=== PATIENT | male | born 1960 | race Caucasian/White ===

== ENCOUNTER 2017-05-04 17:42 | Observation (INO) | payer MEDICARE, OTHER ==
[2017-05-04] VITALS (8 sets, daily range): BP systolic 102–145; BP diastolic 59–78; PULSE 84–95; RESP 17–18; TEMP 98.2–98.8; O2SAT 97–100
[~2017-05-04] VITALS: Ht 170.2 cm; Wt 75.0 kg
[~2017-05-04 17:42] MED LIST: HYDR-3533 PO; PERC10TA27 PO
[2017-05-04] MEDS ORDERED: HYDR-3535 PO (18:03)
[2017-05-04] MEDS ORDERED: LISI40TA PO (18:04)
--- NOTE | 2017-05-04 18:12 | PD ---
HPI Chief Complaint: Syncope/Near-Syncope Time Seen by Provider: 17:52 Travel History International Travel<30 days: No Contact w/Intl Traveler<30days: No Traveled to known affect area: No History of Present Illness HPI Patient is a 57-year-old male who comes in after multiple syncopal episodes. Per his friend, he woke up from sleep and then just passed out and fell backwards. She says she witnessed this happened 4 times. He says this has never happened before. He complains of some left sided chest pain that started after the event. His friend says he has been drinking. He says he was feeling well prior to the event, however he was having leg pain, which is chronic for him. He denies any nausea or vomiting. He does complain of a headache. He denies any dizziness. He says he has not eaten much today. PFSH Past Medical History Diminished Hearing: No Past Surgical History Appendectomy: Yes Other Surgery: Yes (knee surgery) Social History Alcohol Use: Yes (3 beers weekly) Tobacco Use: No Substance Use: No Allergies-Medications (Allergen,Severity, Reaction): Coded Allergies: Penicillin (Verified Allergy, Unknown, 06/19/16) Reported Meds & Prescriptions Reported Meds & Active Scripts Active Reported Lisinopril 40 Mg Tab 80 Mg PO DAILY Lortab (Hydrocodone-Acetaminophen) 10-325 Mg Tab 1 Tab PO Q4H PRN Review of Systems Except as stated in HPI: all other systems reviewed are Neg General / Constitutional: No: Fever, Chills Eyes: No: Blurred Vision HENT: Positive: Headaches Cardiovascular: Positive: Chest Pain or Discomfort Respiratory: No: Shortness of Breath Gastrointestinal: No: Nausea, Vomiting, Abdominal Pain Musculoskeletal: Positive: Pain Skin: No Rash, No Change in Pigmentation Neurologic: Positive: Syncope Physical Exam Narrative GENERAL: Awake and alert, in no acute distress. Alcohol on breath. SKIN: Focused skin assessment warm/dry. HEAD: Atraumatic. Normocephalic. EYES: Pupils equal and round. No scleral icterus. ENT: No nasal bleeding or discharge. Mucous membranes pink and moist. NECK: Trachea midline. No JVD. No cervical spine tenderness. CARDIOVASCULAR: Regular rate and rhythm. No murmur appreciated. RESPIRATORY: No accessory muscle use. Clear to auscultation. Breath sounds equal bilaterally. GASTROINTESTINAL: Abdomen soft, non-tender, nondistended. MUSCULOSKELETAL: No obvious deformities. No clubbing. No cyanosis. No edema. No tenderness to the thoracic or lumbar spine. NEUROLOGICAL: Awake and alert. No obvious cranial nerve deficits. Motor grossly within normal limits. Normal speech. PSYCHIATRIC: Appropriate mood and affect; insight and judgment normal. Data Data Last Documented VS Vital Signs Date Time Temp Pulse Resp B/P Pulse Ox O2 Delivery O2 Flow Rate FiO2 05/04/17 20:04 88 18 139/78 100 Room Air 05/04/17 18:28 2 05/04/17 17:47 98.2 Orders Electrocardiogram (05/04/17 ) Complete Blood Count With Diff (05/04/17 18:) Comprehensive Metabolic Panel (05/04/17 18:) Ckmb (Isoenzyme) Profile (05/04/17 18:01) Troponin I (05/04/17 18:01) Act Partial Throm Time (Ptt) (05/04/17 18:) Prothrombin Time / Inr (Pt) (05/04/17 18:01) Chest, Single Ap (05/04/17 18:01) Ct Brain W/O Iv Contrast(Rout) (05/04/17 18:01) Ct Cerv Spine W/O Contrast (05/04/17 18:01) Ecg Monitoring (05/04/17 18:01) Iv Access Insert/Monitor (05/04/17 18:01) Oximetry (05/04/17 18:01) Sodium Chloride 0.9% Flush (Ns Flush) (05/04/17 18:15) Alcohol (Ethanol) (05/04/17 18:01) Sodium Chlor 0.9% 1000 Ml Inj (Ns 1000 M (05/04/17 18:15) Aspirin Chew (Aspirin Chew) (05/04/17 20:30) Admit Order (Ed Use Only) (05/04/17 20:26) Labs Laboratory Tests Test 05/04/17 18:17 White Blood Count 4.8 TH/MM3 Red Blood Count 3.28 MIL/MM3 Hemoglobin 12.1 GM/DL Hematocrit 34.2 % Mean Corpuscular Volume 104.4 FL Mean Corpuscular Hemoglobin 36.9 PG Mean Corpuscular Hemoglobin 35.4 % Concent Red Cell Distribution Width 12.8 % Platelet Count 212 TH/MM3 Mean Platelet Volume 7.4 FL Neutrophils (%) (Auto) 53.4 % Lymphocytes (%) (Auto) 32.3 % Monocytes (%) (Auto) 13.0 % Eosinophils (%) (Auto) 0.5 % Basophils (%) (Auto) 0.8 % Neutrophils # (Auto) 2.6 TH/MM3 Lymphocytes # (Auto) 1.5 TH/MM3 Monocytes # (Auto) 0.6 TH/MM3 Eosinophils # (Auto) 0.0 TH/MM3 Basophils # (Auto) 0.0 TH/MM3 CBC Comment DIFF FINAL Differential Comment Prothrombin Time 10.0 SEC Prothromb Time International 0.9 RATIO Ratio Activated Partial 23.3 SEC Thromboplast Time Sodium Level 128 MEQ/L Potassium Level 3.6 MEQ/L Chloride Level 94 MEQ/L Carbon Dioxide Level 22.5 MEQ/L Anion Gap 12 MEQ/L Blood Urea Nitrogen 6 MG/DL Creatinine 0.72 MG/DL Estimat Glomerular Filtration 113 ML/MIN Rate Random Glucose 108 MG/DL Calcium Level 8.6 MG/DL Total Bilirubin 0.7 MG/DL Aspartate Amino Transf 47 U/L (AST/SGOT) Alanine Aminotransferase 42 U/L (ALT/SGPT) Alkaline Phosphatase 33 U/L Total Creatine Kinase 66 U/L Troponin I LESS THAN 0.02 NG/ML Total Protein 7.1 GM/DL Albumin 4.0 GM/DL Ethyl Alcohol Level 204 MG/DL [facility] Medical Decision Making Medical Screen Exam Complete: Yes Emergency Medical Condition: Yes Medical Record Reviewed: Yes Interpretation(s) ECG shows normal sinus rhythm at 93, no ST elevation or depression, normal intervals. Differential Diagnosis Dehydration versus intoxication versus cardiac syncope versus neurogenic syncope Narrative Course Patient is a 57-year-old male who comes in after multiple syncopal episodes. Exam shows no neurologic abnormalities. IV established, labs sent. Patient connected to the monitoring manager. Given IV fluids. Patient signed out to Dr. Castillo to follow up testing and disposition the patient. Diagnosis Primary Impression: Syncope Qualified Code: R55 - Syncope, unspecified syncope type Condition: Emelia Luu MD May 04, 2017 18:12
[2017-05-04] MEDS ORDERED: SODIUM CHLOR 0.9% 1000 ML INJ 1,000 ML IV ONE (18:15)
[2017-05-04] MEDS ORDERED: SODIUM CHLORIDE 0.9% FLUSH 10 ML FLUSH IVF PRN (18:15)
--- NOTE | 2017-05-04 18:36 | RADRPT ---
EXAM DATE/TIME: 05/04/2017 18:17 [facility] COMPARISON: No previous studies available for comparison. INDICATIONS : Chest pain. MEDICAL HISTORY : None. SURGICAL HISTORY : None. ENCOUNTER: Initial ACUITY: 1 day PAIN SCORE: 0/10 LOCATION: Bilateral chest FINDINGS: A single view of the chest demonstrates the lungs to be symmetrically aerated without evidence of mas s, infiltrate or effusion. The cardiomediastinal contours are unremarkable. Osseous structures are intact. Old fracture right clavicle. CONCLUSION: No acute disease. Jairo Barker MD on May 04, 2017 at 18:34 Board Certified Radiologist. This report was verified electronically.
[2017-05-04 18:39] LABS: AUTOMATED NEUTROPHIL # 2.6 TH/MM3 (1.8-7.7); BASOPHIL % 0.8 % (0.0-2.0); EOSINOPHIL % 0.5 % (0.0-4.0); HEMATOCRIT 34.2 % (39.0-51.0); HEMO FLAGS DIFF FINAL; LYMPH % 32.3 % (9.0-44.0); LYMPHOCYTE # 1.5 TH/MM3 (1.0-4.8); MEAN CELL VOLUME 104.4 FL (80.0-100.0); MEAN CORPUSCULAR HEMOGLOBIN 36.9 PG (27.0-34.0); MEAN CORPUSCULAR HGB CONC 35.4 % (32.0-36.0); NEUT % 53.4 % (16.0-70.0); PLATELET COUNT 212 TH/MM3 (150-450); RED BLOOD COUNT 3.28 MIL/MM3 (4.50-5.90); RED CELL DISTRIBUTION WIDTH 12.8 % (11.6-17.2); WHITE BLOOD COUNT 4.8 TH/MM3 (4.0-11.0)
--- NOTE | 2017-05-04 18:46 | RADRPT ---
EXAM DATE/TIME: 05/04/2017 18:32 [facility] COMPARISON: No previous studies available for comparison. INDICATIONS : Trauma; fall. Patient complains of dizziness and multiple falls. RADIATION DOSE: 56.35 CTDIvol (mGy) MEDICAL HISTORY : None SURGICAL HISTORY : Appendectomy. Right knee surgery ENCOUNTER: Initial ACUITY: 1 day PAIN SCALE: 5/10 LOCATION: cranial TECHNIQUE: Multiple contiguous axial images were obtained of the head. Using automated exposure control and adj ustment of the mA and/or kV according to patient size, radiation dose was kept as low as reasonably a chievable to obtain optimal diagnostic quality images. DICOM format image data is available electro nically for review and comparison. FINDINGS: CEREBRUM: The ventricles are normal for age. No evidence of midline shift, mass lesion, hemorrhage or acute in farction. No extra-axial fluid collections are seen. POSTERIOR FOSSA: The cerebellum and brainstem are intact. The 4th ventricle is midline. The cerebellopontine angle i s unremarkable. EXTRACRANIAL: The visualized portion of the orbits is intact. SKULL: The calvaria is intact. No evidence of skull fracture. CONCLUSION: No acute intracranial disease. Jairo Barker MD on May 04, 2017 at 18:44 Board Certified Radiologist. This report was verified electronically.
[2017-05-04 18:49] LABS: APTT (PATIENT) 23.3 SEC (24.3-30.1); INTERNATIONAL NORMALIZED RATIO 0.9 RATIO
[2017-05-04 19:01] LABS: ANION GAP 12 MEQ/L (5-15); AST (GOT) 47 U/L (15-37); BICARBONATE 22.5 MEQ/L (21.0-32.0); BLOOD UREA NITROGEN 6 MG/DL (7-18); CHLORIDE 94 MEQ/L (98-107); GLOMERULAR FILTRATION RATE 113 ML/MIN (>89); POTASSIUM 3.6 MEQ/L (3.5-5.1); SODIUM (NA) 128 MEQ/L (136-145)
--- NOTE | 2017-05-04 19:01 | RADRPT ---
EXAM DATE/TIME: 05/04/2017 18:35 [facility] COMPARISON: No previous studies available for comparison. INDICATIONS : Trauma; fall. RADIATION DOSE: 39.42 CTDIvol (mGy) MEDICAL HISTORY : None SURGICAL HISTORY : Appendectomy. Right knee surgery ENCOUNTER: Initial ACUITY: 1 day PAIN SCALE: 5/10 LOCATION: neck TECHNIQUE: Volumetric scanning of the cervical spine was performed. Multiplanar reconstructions in the sagittal, coronal and oblique axial planes were performed. Using automated exposure control and adjustment o f the mA and/or kV according to patient size, radiation dose was kept as low as reasonably achievable to obtain optimal diagnostic quality images. DICOM format image data is available electronically f or review and comparison. FINDINGS: VERTEBRAE: Normal vertebral body height. ALIGNMENT: No evidence of subluxation. C2-C3: The bony spinal canal is normal in size. No evidence of disc bulge or herniation. The neural forami na are bilaterally patent. C3-C4: Small protrusion without canal stenosis. The neural foramina are bilaterally patent. C4-C5: Small protrusion without canal stenosis. The neural foramina are bilaterally patent. C5-C6: Small protrusion without canal stenosis. The neural foramina are bilaterally patent. C6-C7: Small protrusion without canal stenosis. . The neural foramina are bilaterally patent. C7-T1: The bony spinal canal is normal in size. No evidence of disc bulge or herniation. The neural forami na are bilaterally patent. CONCLUSION: 1. No fracture or subluxation. 2. Multilevel protrusions without canal stenosis. Jairo Barker MD on May 04, 2017 at 18:58 Board Certified Radiologist. This report was verified electronically.
[2017-05-04 19:08] LABS: ALKALINE PHOSPHATASE 33 U/L (45-117); ALT (GPT) 42 U/L (12-78); TOTAL BILIRUBIN ADULT 0.7 MG/DL (0.2-1.0)
[2017-05-04 19:10] LABS: CREATINE KINASE 66 U/L (39-308)
--- NOTE | 2017-05-04 19:11 | PD ---
Data Data Last Documented VS Vital Signs Date Time Temp Pulse Resp B/P Pulse Ox O2 Delivery O2 Flow Rate FiO2 05/04/17 20:04 88 18 139/78 100 Room Air 05/04/17 18:28 2 05/04/17 17:47 98.2 Orders Electrocardiogram (05/04/17 ) Complete Blood Count With Diff (05/04/17 18:01) Comprehensive Metabolic Panel (05/04/17 18:01) Ckmb (Isoenzyme) Profile (05/04/17 18:01) Troponin I (05/04/17 18:01) Act Partial Throm Time (Ptt) (05/04/17 18:01) Prothrombin Time / Inr (Pt) (05/04/17 18:01) Chest, Single Ap (05/04/17 18:01) Ct Brain W/O Iv Contrast(Rout) (05/04/17 18:01) Ct Cerv Spine W/O Contrast (05/04/17 18:01) Ecg Monitoring (05/04/17 18:01) Iv Access Insert/Monitor (05/04/17 18:01) Oximetry (05/04/17 18:01) Sodium Chloride 0.9% Flush (Ns Flush) (05/04/17 18:15) Alcohol (Ethanol) (05/04/17 18:01) Sodium Chlor 0.9% 1000 Ml Inj (Ns 1000 M (05/04/17 18:15) Aspirin Chew (Aspirin Chew) (05/04/17 20:30) Admit Order (Ed Use Only) (05/04/17 20:26) Labs Laboratory Tests Test 05/04/17 18:17 White Blood Count 4.8 TH/MM3 Red Blood Count 3.28 MIL/MM3 Hemoglobin 12.1 GM/DL Hematocrit 34.2 % Mean Corpuscular Volume 104.4 FL Mean Corpuscular Hemoglobin 36.9 PG Mean Corpuscular Hemoglobin 35.4 % Concent Red Cell Distribution Width 12.8 % Platelet Count 212 TH/MM3 Mean Platelet Volume 7.4 FL Neutrophils (%) (Auto) 53.4 % Lymphocytes (%) (Auto) 32.3 % Monocytes (%) (Auto) 13.0 % Eosinophils (%) (Auto) 0.5 % Basophils (%) (Auto) 0.8 % Neutrophils # (Auto) 2.6 TH/MM3 Lymphocytes # (Auto) 1.5 TH/MM3 Monocytes # (Auto) 0.6 TH/MM3 Eosinophils # (Auto) 0.0 TH/MM3 Basophils # (Auto) 0.0 TH/MM3 CBC Comment DIFF FINAL Differential Comment Prothrombin Time 10.0 SEC Prothromb Time International 0.9 RATIO Ratio Activated Partial 23.3 SEC Thromboplast Time Sodium Level 128 MEQ/L Potassium Level 3.6 MEQ/L Chloride Level 94 MEQ/L Carbon Dioxide Level 22.5 MEQ/L Anion Gap 12 MEQ/L Blood Urea Nitrogen 6 MG/DL Creatinine 0.72 MG/DL Estimat Glomerular Filtration 113 ML/MIN Rate Random Glucose 108 MG/DL Calcium Level 8.6 MG/DL Total Bilirubin 0.7 MG/DL Aspartate Amino Transf 47 U/L (AST/SGOT) Alanine Aminotransferase 42 U/L (ALT/SGPT) Alkaline Phosphatase 33 U/L Total Creatine Kinase 66 U/L Troponin I LESS THAN 0.02 NG/ML Total Protein 7.1 GM/DL Albumin 4.0 GM/DL Ethyl Alcohol Level 204 MG/DL [facility] Medical Record Reviewed: Yes Supervised Visit with CARL: No Interpretation(s) Last Impressions Head CT 05/04/171800 Signed Impressions: Service Date/Time: Thursday, May 04, 2017 18:32 - CONCLUSION: No acute intracranial disease. Jairo Barker MD Chest X-Ray 05/04/171800 Signed Impressions: Service Date/Time: Thursday, May 04, 2017 18:17 - CONCLUSION: No acute disease. Jairo Barker MD Cervical Spine CT 05/04/171800 Signed Impressions: Service Date/Time: Thursday, May 04, 2017 18:35 - CONCLUSION: 1. No fracture or subluxation. 2. Multilevel protrusions without canal stenosis. Jairo Barker MD Narrative Course During the course of the patients emergency department visit, the patients history, examination, and differential diagnosis were reviewed with the patient. The patient had IV access obtained and blood work sent for analysis. The patient was placed on a radiation monitor with oximetry and blood pressure monitoring. The patient was initially evaluated by Dr. Jackson. Please see her complete history and physical. The patient's case was checked out to me at the conclusion of her shift. The patient was initially provided normal saline a 1 L IV fluid bolus. The patients laboratory studies were reviewed and remarkable for a white count of 4.8, hemoglobin 12.1, platelets 212 with 13 monocytes, CMP is remarkable for sodium of 128, chloride 94, BUNs 6, glucose 108, AST 47, alkaline phosphatase 33 , CPK 66, troponin I less than 0.02, PT 10, PTT 23.3, alcohol 204. Radiology studies were reviewed and remarkable for a chest x-ray that shows no acute abnormality. CT scan of the brain shows no acute intracranial disease. CT scan of the C-spine shows no fracture or subluxation, multilevel protrusions without canal stenosis. Given his multiple syncopal events prior to arrival and chest pain after one of the syncopal event, the patient will be admitted to the hospital for continued further evaluation and treatment. The patients results were discussed with the patient, including the plan of care. I explained that further testing and/ or monitoring is indicated based on the patients history, examination, and/ or laboratory findings. Therefore, I recommended admission for additional evaluation. The patient expressed understanding and was agreeable with this plan. The patient was admitted to the hospital in stable condition and sent to a bed under the care of the [facility] hospitalist group. Physician Communication Physician Communication The patient's case is discussed with Tim Sibley. He did agree to admit the patient for further evaluation and treatment to the [facility] hospitalist group. Diagnosis Primary Impression: Syncope Qualified Code: R55 - Syncope, unspecified syncope type Additional Impression: Chest pain, rule out acute myocardial infarction Admitting Information Admitting Physician Requests: Bren Traore MD May 04, 2017 19:11
[2017-05-04] MEDS ORDERED: SODIUM CHLORIDE 0.9% FLUSH 10 ML FLUSH IV FLUSH PRN (20:30)
[2017-05-04] MEDS ORDERED: NALOXONE HCL 0.4 MG/ML AMP IV PRN (20:30)
[2017-05-04] MEDS ORDERED: cloNIDine HCL 0.1 MG TAB PO PRN (20:30)
[2017-05-04] MEDS ORDERED: ONDANSETRON HCL 4 MG/2 ML VIAL IVP PRN (20:30)
[2017-05-04] MEDS ORDERED: SENNOSIDES 8.6 MG TAB PO PRN (20:30)
[2017-05-04] MEDS ORDERED: ASPIRIN 81 MG CHEW TAB CHEW ONE (20:30)
[2017-05-04] MEDS ORDERED: LORazepam 1 MG TAB PO PRN (20:30)
[2017-05-04] MEDS ORDERED: LORazepam 2 MG/ML VIAL IV PUSH PRN ×2 (20:30)
[2017-05-04] MEDS ORDERED: ACETAMINOPHEN 325 MG TAB PO PRN (20:30)
[2017-05-04] MEDS ORDERED: LORazepam 2 MG TAB PO PRN (20:30)
[2017-05-04] MEDS: SODIUM CHLOR 0.9% 1000 ML INJ 1,000 ML IV SCH (20:53)
[2017-05-04] MEDS: SODIUM CHLORIDE 0.9% FLUSH 10 ML FLUSH IV FLUSH SCH (21:08)
[2017-05-04] MEDS: FAMOTIDINE 20 MG TAB PO SCH (21:13)
[2017-05-04 22:54] LABS: AMPHETAMINE, URINE NEG (NEG); BARBITURATES, URINE NEG (NEG); COCAINE, URINE NEG (NEG)
[2017-05-04] MEDS ORDERED: POTASSIUM CHLORIDE 25 MEQ EFFERVESCENT TAB PO ONE (23:00)
[2017-05-04] MEDS: ACETAMINOPHEN/HYDROcodone 325 MG/7.5 MG TAB PO PRN (23:49)
[2017-05-05] VITALS (8 sets, daily range): BP systolic 130–164; BP diastolic 68–84; PULSE 74–96; RESP 14–20; TEMP 97.8–98.7; O2SAT 97–100
[2017-05-05] MEDS: ENOXAPARIN SODIUM 40 MG/0.4 ML SYRINGE SQ SCH ×2 (00:14→21:54)
--- NOTE | 2017-05-05 05:26 | MH ---
cc: ESTEFANIA LOPZE D.O., AMMA DATE OF ADMISSION: 05/04/2017 TIME OF VISIT 22:00 CHIEF COMPLAINT Syncope, chest pain. HISTORY OF PRESENT ILLNESS This is a 57-year-old male who was drinking with a friend of his. He had more beers than he was used to. He admits to five beers. States he does not drink on a daily basis. Denies any drug use or tobacco use. The patient apparently had several episodes of syncope; he does not remember this. The next thing, he woke up and the ambulances were there. According to the ER notes, he syncopized four times. He apparently complained of some chest pain after the episode; however, at this point he does not remember having any chest pain. Denied any shortness of breath, nausea or vomiting, fever or chills. He does have a headache. He feels that he hit the back of his head. He admits to one episode of syncope about a month ago. There was no witnessed seizure activity, no loss of bowel or bladder control. He has had no recent exertional chest pain. MEDICATIONS ON ADMISSION Lisinopril. Lortab. ALLERGIES PENCIL LOUIE. PAST MEDICAL HISTORY 1. Hypertension. 2. Episode of syncope one month ago. 3. 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 PAST SURGICAL HISTORY 1. Right knee ACL. 2. Appendectomy. 3. Right foot surgery 4. Lumbar spinal surgery. SOCIAL HISTORY Not . Denies alcohol or drug use. Occasional alcohol. Disabled. He used to be a substation technician. FAMILY HISTORY Father at 40, was shot. Mother is alive and well. Sister is alive and well. REVIEW OF SYSTEMS The patient states he had blood work several months ago with Dr. Lopez and everything was normal. He has never had a colonoscopy but did have the DNA stool test which was reported to be normal. His appetite has been poor. He has lost about 35 pounds over the past several years. He states this is because of his chronic pain. A 12-point review of systems without other pertinent findings. PHYSICAL EXAMINATION VITAL SIGNS: He is afebrile. Heart rate sinus, 18, blood pressure is 145/75, O2 sat is 100%. GENERAL: This is a 57-year-old male sitting in bed. He is in no distress. HEENT: Mucous membranes are moist. No jaundice. NECK: Supple. CARDIOVASCULAR SYSTEM: Regular rate and rhythm. RESPIRATORY SYSTEM: Lungs are clear. GASTROINTESTINAL SYSTEM: Bowel sounds are present. There is no point tenderness, guarding, rebound or distention. SYSTEM: No suprapubic tenderness. No CVA tenderness. MUSCULOSKELETAL SYSTEM: No edema. Doris's negative. Distal pulses are palpable. NEUROLOGICAL EXAMINATION: Awake, alert, oriented x 4. Speech is clear and fluent. Moving all extremities freely. INVESTIGATIONS White count is 4.8, hemoglobin is 12.1, platelets are 212. INR is 0.9. Sodium 128, potassium 3.6, BUN 6, creatinine 0.72. AST 47, ALT of 42. Troponin I 0.2. Urine drug screen is pending. Blood alcohol level is 204. CT of the cervical spine - no fracture. Chest x-ray - No acute disease. CT f the brain - No acute abnormality. IMPRESSION 1. Multiple syncopal episodes. 2. Alcohol intoxication. 3. Atypical chest pain. 4. Hypertension. 5. Chronic pain. 6. Hyponatremia. 7. Mild anemia. DISCUSSION The patient is placed on observation status to Dr. Montes's service. The plan is to rule him out for acute cardiac event with serial troponins, repeat EKG in the morning. He has received aspirin. He currently has no chest discomfort. DVT prophylaxis will be provided. GI prophylaxis with an H2 sweta will be given. The patient will be placed on a CIWA-Ar scale, p.r.n. Ativan. He has received IV fluids. We will give him a dose of potassium. We will recheck electrolytes in the morning, also check stool for blood, check iron stores and make further recommendations as his case progresses. Anticipated length of stay less than 48 hours. Anticipated discharge home. Dictated by: Marc Sibley PA-C MD ANNA [place]/DOMINIQUE /10:59 PM /5:07 AM
[2017-05-05] MEDS: ACETAMINOPHEN/HYDROcodone 325 MG/7.5 MG TAB PO PRN ×3 (06:39→21:51)
[2017-05-05] MEDS: SODIUM CHLOR 0.9% 1000 ML INJ 1,000 ML IV SCH ×2 (06:40→07:54)
[2017-05-05 07:14] LABS: AUTOMATED NEUTROPHIL # 3.2 TH/MM3 (1.8-7.7); BASOPHIL % 0.3 % (0.0-2.0); EOSINOPHIL % 0.1 % (0.0-4.0); HEMATOCRIT 33.2 % (39.0-51.0); HEMO FLAGS DIFF FINAL; LYMPH % 17.4 % (9.0-44.0); LYMPHOCYTE # 0.8 TH/MM3 (1.0-4.8); MEAN CELL VOLUME 106.6 FL (80.0-100.0); MEAN CORPUSCULAR HEMOGLOBIN 36.1 PG (27.0-34.0); MEAN CORPUSCULAR HGB CONC 33.9 % (32.0-36.0); NEUT % 73.2 % (16.0-70.0); PLATELET COUNT 194 TH/MM3 (150-450); RED BLOOD COUNT 3.12 MIL/MM3 (4.50-5.90); RED CELL DISTRIBUTION WIDTH 12.9 % (11.6-17.2); WHITE BLOOD COUNT 4.4 TH/MM3 (4.0-11.0)
[2017-05-05] MEDS: FOLIC ACID 1 MG TAB PO SCH (07:55)
[2017-05-05] MEDS: SODIUM CHLORIDE 0.9% FLUSH 10 ML FLUSH IV FLUSH SCH ×2 (07:55→21:52)
[2017-05-05] MEDS: MULTIVITAMINS/MINERALS THERAPEUTIC TAB PO SCH (07:55)
[2017-05-05] MEDS: THIAMINE HCL 100 MG TAB PO SCH (07:56)
[2017-05-05] MEDS: ASPIRIN EC 81 MG TABEC PO SCH (07:56)
[2017-05-05] MEDS: FAMOTIDINE 20 MG TAB PO SCH ×2 (07:56→21:52)
[2017-05-05 07:58] LABS: ALKALINE PHOSPHATASE 29 U/L (45-117); ALT (GPT) 44 U/L (12-78); ANION GAP 9 MEQ/L (5-15); AST (GOT) 52 U/L (15-37); BICARBONATE 24.2 MEQ/L (21.0-32.0); BLOOD UREA NITROGEN 6 MG/DL (7-18); CHLORIDE 103 MEQ/L (98-107); GLOMERULAR FILTRATION RATE 143 ML/MIN (>89); POTASSIUM 4.3 MEQ/L (3.5-5.1); SODIUM (NA) 136 MEQ/L (136-145); TOTAL BILIRUBIN ADULT 1.3 MG/DL (0.2-1.0)
--- NOTE | 2017-05-05 08:40 | EKG ---
Date Performed: 05/05/2017 Time Performed: 04:12:49 PTAGE: 57 years EKG: Sinus rhythm NORMAL ECG PREVIOUS TRACING : 05/04/2017 18.00 No significant change from previous tracing noted. DOCTOR: Hoang Hernandez Interpretating Date/Time 05/05/2017 08:39:33
[2017-05-05] MEDS ORDERED: LISINOPRIL 80 MG PO SCH (09:00)
--- NOTE | 2017-05-05 09:16 | RADRPT ---
EXAM DATE/TIME: 05/05/2017 08:22 [facility] COMPARISON: No previous studies available for comparison. INDICATIONS : Syncope. MEDICAL HISTORY : Syncope. ETOH use. SURGICAL HISTORY : Appendectomy. Bilateral knee surgery. ENCOUNTER: Initial ACUITY: 1 day PAIN SCORE: 10 LOCATION: Bilateral neck PEAK SYSTOLIC VELOCITIES (cm/sec): ICA/CCA RATIO: Right: 1.1 Left: 0.9 ICA: Right: 100 Left: 102 CCA: Right: 89 Left: 111 ECA: Right: 120 Left: 91 VERTEBRAL: Right: 60 antegrade Left: 70 antegrade Elevated flow velocities and ICA/CCA ratios have been found to correlate with increased degrees of vessel stenosis, calculated as percentage of diameter relative to a normal segment of distal ICA/CCA FINDINGS: RIGHT CAROTID: There is no evidence for a hemodynamically significant carotid stenosis. Minimal int imal hyperplasia is present with scattered calcific plaque. LEFT CAROTID: There is no evidence for a hemodynamically significant carotid stenosis. Minimal inti mal hyperplasia is present with scattered calcific plaque. VERTEBRAL ARTERIES: Flow is antegrade in both vertebral arteries. MISCELLANEOUS: There are no ancillary masses or adenopathy. CONCLUSION: Negative examination for a hemodynamically significant carotid stenosis. Dick Nova MD FACR Board Certified Radiologist. This report was verified electronically.
[2017-05-05] MEDS: LISINOPRIL 20 MG TAB PO SCH (10:43)
--- NOTE | 2017-05-05 11:43 | HHI.PR ---
Objective Objective Results - Vital Signs Date Time Temp Pulse Resp B/P Pulse Ox O2 Delivery O2 Flow Rate FiO2 05/05/17 11:23 98.0 14 130/70 97 133/73 141/68 05/05/17 08:00 98 21 05/05/17 08:00 82 05/05/17 07:22 97.9 85 15 139/75 98 05/05/17 04:09 89 05/05/17 04:06 98.7 96 20 133/84 99 05/05/17 00:50 14 05/05/17 00:20 82 05/04/17 22:14 98.8 84 18 144/72 98 05/04/17 22:06 84 05/04/17 21:20 90 18 145/75 100 Room Air 05/04/17 21:00 100 Nasal Cannula 2.00 05/04/17 20:04 88 18 139/78 100 Room Air 05/04/17 18:28 82 18 97 Nasal Cannula 2 05/04/17 18:19 95 18 107/64 100 Nasal Cannula 2 05/04/17 18:11 97 Nasal Cannula 2 05/04/17 17:47 98.2 92 17 102/59 99 I/O 05/04/17 05/04/17 05/04/17 05/05/17 05/05/17 05/05/17 06:59 14:59 22:59 06:59 14:59 22:59 Intake Total 950 ml Balance 950 ml Intake Oral 500 ml IV Total 450 ml # Voids 3 Result Diagram: 05/05/17 0555 05/05/17 0555 Other Results Laboratory Tests Test 05/04/17 05/04/17 05/05/17 05/05/17 18:17 21:20 01:50 05:55 White Blood Count 4.8 4.4 Red Blood Count 3.28 3.12 Hemoglobin 12.1 11.3 Hematocrit 34.2 33.2 Mean Corpuscular Volume 104.4 106.6 Mean Corpuscular Hemoglobin 36.9 36.1 Mean Corpuscular Hemoglobin 35.4 33.9 Concent Red Cell Distribution Width 12.8 12.9 Platelet Count 212 194 Mean Platelet Volume 7.4 7.1 Neutrophils (%) (Auto) 53.4 73.2 Lymphocytes (%) (Auto) 32.3 17.4 Monocytes (%) (Auto) 13.0 9.0 Eosinophils (%) (Auto) 0.5 0.1 Basophils (%) (Auto) 0.8 0.3 Neutrophils # (Auto) 2.6 3.2 Lymphocytes # (Auto) 1.5 0.8 Monocytes # (Auto) 0.6 0.4 Eosinophils # (Auto) 0.0 0.0 Basophils # (Auto) 0.0 0.0 CBC Comment DIFF FINAL DIFF FINAL Differential Comment Prothrombin Time 10.0 Prothromb Time International 0.9 Ratio Activated Partial 23.3 Thromboplast Time Sodium Level 128 136 Potassium Level 3.6 4.3 Chloride Level 94 103 Carbon Dioxide Level 22.5 24.2 Anion Gap 12 9 Blood Urea Nitrogen 6 6 Creatinine 0.72 0.59 Estimat Glomerular Filtration 113 143 Rate Random Glucose 108 76 Calcium Level 8.6 8.4 Total Bilirubin 0.7 1.3 Aspartate Amino Transf 47 52 (AST/SGOT) Alanine Aminotransferase 42 44 (ALT/SGPT) Alkaline Phosphatase 33 29 Total Creatine Kinase 66 Troponin I LESS THAN 0.02 LESS THAN 0.02 LESS THAN 0.02 Total Protein 7.1 6.6 Albumin 4.0 3.7 Ethyl Alcohol Level 204 Urine Opiates Screen NEG Urine Barbiturates Screen NEG Urine Amphetamines Screen NEG Urine Benzodiazepines Screen NEG Urine Cocaine Screen NEG Urine Cannabinoids Screen NEG Physical Exam Physical Exam PHYSICAL EXAMINATION GENERAL: This is a well-developed, well-nourished male who appears to be in no acute distress. He is alert and awake, []. HEAD: Normocephalic without any lesion or mass noted. Facial features appear symmetric. EYES: Perrla, Normal eye movement, [] Icterus. [] Conj congestion. OROPHARYNGEAL: Oropharynx without erythema or edema. MOUTH/THROAT: Tongue midline []. Buccal mucosa is moist []. NECK: Supple. No nuchal rigidity or lymphadenopathy. Trachea midline without deviation. Thyroid not palpable, no bruits appreciated. CARDIAC: Regular rhythm, regular rate, S1 and S2 are heard. Murmur []; no gallops or rubs. LUNGS: Clear to auscultation bilaterally. [] wheeze, [] rhonchi or [] rale. No use of accessory muscles on inspiration or expiration. ABDOMEN: Soft, nontender, no organomegaly or masses. Bowel sounds are heard in all four quadrants. No rebound. No guarding. EXTREMITIES: [] edema. Pulses equal bilateral. [] cyanosis. NEUROLOGICAL: Patient mood and affect appropriate. Cranial nerves II through XII grossly intact. Muscle strength 5/5 in the upper and lower extremities bilaterally. Deep tendon reflexes are 2+ in the upper and lower extremities bilaterally. SKIN:Warm and moist PSYCH: Mood and affect appropriate A/P Assessment and Plan patient seen and examined no more syncopal episodes since admission no arrythmia noted on telemetry troponin neg x3 ekg neg carotid ultrasound, head and C spine CT neg awaiting echo and cardiology eval monitor for DTs, CIWA scale, prn Ativan thiamine and folic acid discussed with patient no family at bedside Zeenat Montes MD May 05, 2017 11:43
--- NOTE | 2017-05-05 15:30 | MB ---
cc: EDUARDO ADAMS M.D. DATE OF CONSULTATION: 05/05/2017 HISTORY OF PRESENT ILLNESS Jim is a very pleasant 57-year-old gentleman who had multiple syncopal episodes at night witnessed by his . The patient has no recollection of the events. His does note that he does consume alcohol. He had no prodromal events as previously stated including no episodes of chest pain, shortness of breath, near-syncope or lightheadedness. He has a pipe fitter helper. He has had a crush injury to his lower extremity in the past. He is preoccupied that the etiology to his symptoms may have been neuropathic injury. He otherwise denies any chest pain, fevers, chills, cough, GI or bleeding, PND, orthopnea or dyspnea. PAST MEDICAL HISTORY Per history of present illness. The ER note indicated that he did complain of left-sided chest pain after the event, but the patient denies this. PAST SURGICAL HISTORY 1. Appendectomy. 2. Knee surgery. SOCIAL HISTORY He admits to drinking three beers weekly. His friend suggests that he drinks more than that. Tobacco use none. Substance abuse none. ALLERGIES PENICILLIN. MEDICATIONS Medications prior to admission: 1. Lisinopril 40 mg and 80 mg documented in the ER. 2. Lortab. Medications in the hospital: 1. Folic acid 1 mg daily. 2. Thiamine 100 mg daily. 3. Multivitamin, one tablet daily. 4. Aspirin 162 mg daily. 5. Lisinopril 40 mg daily. 6. Lovenox 40 mg q.24h. PHYSICAL EXAMINATION VITAL SIGNS: Blood pressure 130/70, pulse 82, temperature 98.0 respiratory rate 14. Sats 97% on room air. GENERAL: He is alert and oriented x3 in no acute distress. NECK: Supple. No JVD. No bruits. CARDIOVASCULAR: S1, S2. No murmurs, rubs or gallops. LUNGS: Clear to auscultation bilaterally. ABDOMEN: Soft, nontender, nondistended with positive bowel sounds. EXTREMITIES: No lower extremity edema. LABORATORY White count 4.4, hemoglobin 11.3, hematocrit 32.2, MCV 106.6, platelet count 194. Sodium 128, potassium 3.6, chloride 94, BUN 6, creatinine 0.72. Troponin less than 0.02 x3. AST 47, ALT 42, albumin 4.0. Random glucose 108. INR is 0.9. Ethyl alcohol level was 204. IMAGING Carotid ultrasound: Negative examination for "hemodynamically significant carotid stenosis." Cervical spine CT: No fracture or subluxation. Multilevel protrusions without canal stenosis. Chest x-ray: No acute disease. Head CT: No acute intracranial disease. EKG EKG: Normal sinus rhythm at 93 beats per minute, otherwise normal. The QT interval is 420 milliseconds. DIAGNOSIS 1. Syncope with no prodrome. 2. Alcohol abuse. 3. Alcohol intoxication. 4. Anemia. 5. Macrocytic anemia. 6. Hyponatremia. 7. Elevated liver enzymes. 8. New-onset chest pain. DISCUSSION At this point in time the patient's carotid ultrasound is negative and no arrhythmias are reported on telemetry. His EKG is normal. I do think it is medically necessary to perform a 2-D echo and also strongly consider a neurology consult. His presentation appears suspicious for either dehydration, hyponatremia, intravascular volume depletion and/or the presence of alcohol intoxication as the etiology to his symptoms. He does have risk factors and he does have new-onset chest pain so once his neurologic evaluation has been completed I do think it is medically necessary to do some form of stress testing. If he is able to walk on the treadmill would start with an exercise treadmill test. Otherwise recommend alcohol abstinence. MD ANGELO Perez/ANNIE /2:39 PM /3:20 PM
--- NOTE | 2017-05-05 15:43 | ECHRPT ---
Indication: Chest pain, unspecified CONCLUSIONS Normal left ventricular size. Wall thickness is normal. The left ventricular systolic function is low normal with an estimated ejection fraction in the rang e of 50- 55%. BP: / HR: Rhythm: Sinus MEASUREMENTS (Male / Female) Normal Values Technical Quality:Fair 2D ECHO LV Diastolic Diameter PLAX 5.0 cm 4.2 - 5.9 / 3.9 - 5.3 cm LV Systolic Diameter PLAX 3.7 cm IVS Diastolic Thickness 1.2 cm 0.6 - 1.0 / 0.6 - 0.9 cm LVPW Diastolic Thickness 0.9 cm 0.6 - 1.0 / 0.6 - 0.9 cm LV Relative Wall Thickness 0.4 RV Internal Dim ED PLAX 1.8 cm LA Systolic Diameter LX 3.5 cm 3.0 - 4.0 / 2.7 - 3.8 cm DOPPLER Mitral E Point Velocity 59.7 cm/s Mitral A Point Velocity 63.2 cm/s Mitral E to A Ratio 0.9 TR Peak Velocity 138.0 cm/s TR Peak Gradient 7.6 mmHg FINDINGS LEFT VENTRICLE Normal left ventricular size. Wall thickness is normal. The left ventricular systolic function is low normal with an estimated ejection fraction in the rang e of 50- 55%. RIGHT VENTRICLE Normal right ventricular size and systolic function. LEFT ATRIUM The left atrial size is normal. RIGHT ATRIUM The right atrial size is normal. ATRIAL SEPTUM Normal atrial septal thickness without atrial level shunting by limited color doppler interrogation. AORTA The aortic root and proximal ascending aorta are normal in size on limited imaging. MITRAL VALVE Structurally normal mitral valve. No mitral valve stenosis or regurgitation. AORTIC VALVE Trileaflet aortic valve. No aortic valve stenosis or regurgitation. TRICUSPID VALVE Structurally normal tricuspid valve. No tricuspid valve stenosis or regurgitation. PULMONARY VALVE The pulmonary valve is not well visualized. VESSELS The inferior vena cava is normal in size. PERICARDIUM No pericardial effusion. Kevyn Hedrick MD, FACC (Electronically Signed) Final Date:05 May 2017 15:42
[2017-05-06] VITALS (7 sets, daily range): BP systolic 123–165; BP diastolic 58–78; PULSE 67–99; RESP 15–18; TEMP 97.8–98.8; O2SAT 96–100
[2017-05-06] MEDS: SODIUM CHLOR 0.9% 1000 ML INJ 1,000 ML IV SCH ×2 (03:28→15:20)
[2017-05-06] MEDS: ACETAMINOPHEN/HYDROcodone 325 MG/7.5 MG TAB PO PRN ×3 (03:29→17:32)
--- NOTE | 2017-05-06 06:43 | MB ---
cc: CONSTANZA CAMPBELL DATE OF CONSULTATION 05/05/2017 HISTORY OF PRESENT ILLNESS The patient came in last evening well. His significant other provided additional information. She tells me at bedside that yesterday he had four blacking out spells. He blacked out, went down on the ground and she heard a thud and she came in, assisted him and there was no convulsive movements. He then went black again, going on the ground and this happened on four occasions in a short period of time. There was some apparent bowel loss but no apparent bladder loss. The patient appears to be a heavy drinker. The girlfriend or significant other describes him drinking a 12-pack of beer daily, though the patient says it is less than that. The patient has a history of some right leg injury with multiple surgeries in the past and he describes being disabled from that. PAST MEDICAL HISTORY 1. He also has had previous history of syncopal episodes. 2. He takes painkiller medications and blood pressure medications. 3. He follows with a neurologist Dr. Ma. 4. He also has a history of lumbar spine surgery. NEUROLOGICAL EXAMINATION The neurological exam shows mild tremulousness. Otherwise mild anxiety and benign neurologic exam. Reflexes were 1+. Plantar responses are flexor. He gives away with some exam on the right lower extremity. IMAGING STUDIES Cervical spine CT scan is negative for acute event. Carotid ultrasound also was essentially unremarkable. CT brain showing no acute disease. ASSESSMENT Recurrent blacking out episodes. Syncope versus seizure. Geotechnical Field Technician is following the patient as well. I want an EEG done. There is a significant history of alcohol use. There is some possible alcohol withdrawal tremoring at this point. He was counseled about the alcohol situation and possible/probable relationship to his symptomatology. RECOMMENDATIONS He probably can be discharged home if the EEG is unremarkable and be followed as an outpatient. He already has a neurologist and I advised him to follow with Dr. Ma. Thank you for asking us to assist in his care. Edgar Marshall MD OFC/SSB /5:31 PM /6:38 AM
--- NOTE | 2017-05-06 07:38 | EKG ---
Date Performed: 05/04/2017 Time Performed: 18:00:50 PTAGE: 57 years EKG: Sinus rhythm NORMAL ECG NO PREVIOUS TRACING DOCTOR: Hoang Hernandez Interpretating Date/Time 05/06/2017 07:37:13
--- NOTE | 2017-05-06 08:39 | HHI.PR ---
Subjective Remarks Awake Complaints of lower back and legs cramping Mildly anxious over current hospital stay and possible alcoholic tremors Afebrile, BP 165/76 (Kenya Gillis) Objective Objective Results - Vital Signs Date Time Temp Pulse Resp B/P Pulse Ox O2 Delivery O2 Flow Rate FiO2 05/06/17 07:23 97.8 68 15 165/76 99 05/06/17 04:05 21 05/06/17 00:03 98.1 67 18 133/63 97 05/05/17 19:24 97.8 75 18 153/68 100 05/05/17 15:35 98.4 74 15 164/80 99 05/05/17 11:23 98.0 14 130/70 97 133/73 141/68 I/O 05/05/17 05/05/17 05/05/17 05/06/17 05/06/17 05/06/17 07:00 15:00 23:00 07:00 15:00 23:00 Intake Total 950 ml 560 ml Balance 950 ml 560 ml Intake Oral 500 ml IV Total 450 ml 560 ml # Voids 3 (Kenya Gillis) Result Diagram: 05/05/17 0555 05/05/17 0555 ROS General: Fatigue, Weakness, Other (10 point ROS done positives noted) HEENT: Other (no syncope noted since admission) Cardiac: Chest Pain (none) Pulmonary: Cough (occasional) Neuro/MS: Other (anxious) (Kenya Gillis) Physical Exam Physical Exam PHYSICAL EXAMINATION GENERAL: This is a slim male who appears to be in mild distress. He is awake, responsive HEAD: Normocephalic Facial features appear symmetric. OROPHARYNGEAL: Oropharynx clear NECK: Supple. Trachea midline without deviation. CARDIAC: Regular rhythm, regular rate, S1 and S2 are heard. LUNGS: Clear to auscultation bilaterally. No wheeze noted ABDOMEN: Soft, nontender, no organomegaly or masses. Bowel sounds are heard in all four quadrants. No rebound. No guarding. EXTREMITIES: No edema. Pulses equal bilateral. NEUROLOGICAL: Patient mood and affect mild anxiety. No focal deficit SKIN:Warm and moist (Kenya Gillis) A/P Assessment and Plan 1. Multiple syncopal episodes. Patient unaware with presyncopal episodes, none since admission Plan for EEG today 2. Alcohol intoxication. Detox protocol, patient alert and awake but mildly restless, alcoholic tremors mild 3. Atypical chest pain. No complaints of chest pain today enzymes-negative 4. Hypertension. Medical management systolic 165, we'll monitor 5. Chronic pain. Takes [place] at home 5 times a day patient states, complaints now of legs been restless and lower back hurting 6. Hyponatremia. Labs monitored medical management 7. Mild anemia. Labs monitor medical management Vital signs reviewed, afebrile BP 165/76 Labs reviewed, mild anemia hemoglobin 11.3 but no acute blood loss noted Troponins negative negative CT negative carotids, Discussed with patient Discussed with nurse Discussed with Dr. montes, seen on her behalf Discharge planning possibly in a.m. if EEG normal, will need outpatient follow- up (Kenya Gillis) Assessment and Plan patient seen and examined agree with above assessment and plan awaiting EEG results if neg can be discharged home plan of care discussed with patient plan of care discussed with Kneya BRADLEY (Zeenat Montes MD) Kenya Gillis May 06, 2017 08:39 Zeenat Montes MD May 06, 2017 11:44
[2017-05-06] MEDS: SODIUM CHLORIDE 0.9% FLUSH 10 ML FLUSH IV FLUSH SCH ×2 (09:00→21:44)
[2017-05-06] MEDS: THIAMINE HCL 100 MG TAB PO SCH (09:34)
[2017-05-06] MEDS: MULTIVITAMINS/MINERALS THERAPEUTIC TAB PO SCH (09:34)
[2017-05-06] MEDS: FOLIC ACID 1 MG TAB PO SCH (09:34)
[2017-05-06] MEDS: FAMOTIDINE 20 MG TAB PO SCH ×2 (09:34→21:00)
[2017-05-06] MEDS: LISINOPRIL 20 MG TAB PO SCH (09:35)
[2017-05-06] MEDS: ASPIRIN EC 81 MG TABEC PO SCH (09:35)
--- NOTE | 2017-05-06 15:28 | PD.CARD.PN ---
Subjective Subjective Remarks alert in nad, denies chest pain Objective Vital Signs / I&O Vital Signs Date Time Temp Pulse Resp B/P Pulse Ox O2 Delivery O2 Flow Rate FiO2 05/06/17 11:17 98.8 83 15 126/58 98 05/06/17 10:53 20 05/06/17 07:23 97.8 68 15 165/76 99 05/06/17 04:05 21 05/06/17 00:03 98.1 67 18 133/63 97 05/05/17 19:24 97.8 75 18 153/68 100 05/05/17 15:35 98.4 74 15 164/80 99 I/O 05/05/17 05/05/17 05/05/17 05/06/17 05/06/17 05/06/17 07:00 15:00 23:00 07:00 15:00 23:00 Intake Total 950 ml 560 ml Balance 950 ml 560 ml Intake Oral 500 ml IV Total 450 ml 560 ml # Voids 3 Laboratory GENERAL: SKIN: Warm and dry. HEAD: Normocephalic. EYES: No scleral icterus. No injection or drainage. NECK: Supple, trachea midline. No JVD or lymphadenopathy. CARDIOVASCULAR: Regular rate and rhythm without murmurs, gallops, or rubs. RESPIRATORY: Breath sounds equal bilaterally. No accessory muscle use. GASTROINTESTINAL: Abdomen soft, non-tender, nondistended. MUSCULOSKELETAL: No cyanosis, or edema. BACK: Nontender without obvious deformity. No CVA tenderness. Assessment and Plan Problem List: (1) Chest pain, rule out acute myocardial infarction (2) Syncope Assessment and Plan 1.) Chest pain - resolved 2.) Syncope - carotid us, telemetry and echo wnl, ok to dc from cv standpoint, f /u with me in office 05/07/17, d/w nurse and patient Problem Qualifiers (1) Syncope: Qualified Code: R55 - Syncope, unspecified syncope type Sheldon Baez MD May 06, 2017 15:28
[2017-05-07] VITALS: BP_SYST 110; BP_SYST 114; BP_SYST 123; BP_DIAS 61; BP_DIAS 69; BP_DIAS 76; PULSE 69; RESP 17; TEMP 99.2; O2SAT 100
[2017-05-07 00:30] VITALS: PULSE 63
[2017-05-07] MEDS: ENOXAPARIN SODIUM 40 MG/0.4 ML SYRINGE SQ SCH (01:16)
[2017-05-07] MEDS: ACETAMINOPHEN/HYDROcodone 325 MG/7.5 MG TAB PO PRN ×2 (01:18→08:21)
[2017-05-07 03:39] VITALS: BP_SYST 107; BP_SYST 108; BP_SYST 113; BP_DIAS 59; BP_DIAS 66; BP_DIAS 71; PULSE 67; RESP 17; TEMP 98.7; O2SAT 99
[2017-05-07 04:38] VITALS: PULSE 64
[2017-05-07] MEDS: SODIUM CHLOR 0.9% 1000 ML INJ 1,000 ML IV SCH (05:38)
[2017-05-07 07:16] VITALS: PULSE 63
[2017-05-07 07:29] VITALS: BP_SYST 125; BP_SYST 137; BP_SYST 140; BP_DIAS 75; BP_DIAS 78; BP_DIAS 81; PULSE 68; RESP 16; TEMP 99; O2SAT 98
[2017-05-07] MEDS: FOLIC ACID 1 MG TAB PO SCH (08:19)
[2017-05-07] MEDS: MULTIVITAMINS/MINERALS THERAPEUTIC TAB PO SCH (08:19)
[2017-05-07] MEDS: THIAMINE HCL 100 MG TAB PO SCH (08:19)
[2017-05-07] MEDS: FAMOTIDINE 20 MG TAB PO SCH (08:19)
[2017-05-07] MEDS: LISINOPRIL 20 MG TAB PO SCH (08:19)
--- NOTE | 2017-05-07 08:19 | MG ---
cc: JOSE CRUZ BRAY MD Lab No: [id number] Date: 05/06/2017 Age: 56 Sex: M Race: __ DATE OF 1960 INDICATIONS History of syncopal episodes. DESCRIPTION Excessive eye movement present. Posterior rhythm showing 8-10 Hz activity, 20-40 microvolts. Good driving with photic stimulation. Single lead EKG showing sinus rhythm. Good EEG variability reactivity. INTERPRETATION Normal EEG with excessive eye movements. Clinical correlation. Jose Cruz Bray MD MG/DJL /7:45 AM /8:11 AM
[2017-05-07] MEDS: ASPIRIN EC 81 MG TABEC PO SCH (08:20)
[2017-05-07] MEDS: SODIUM CHLORIDE 0.9% FLUSH 10 ML FLUSH IV FLUSH SCH (08:20)
--- NOTE | 2017-05-07 08:47 | HHI.PR ---
Review/Management Daily Summary 05/07 doing well no recurrence of neuro sx eeg just back, normal ok to d/c neuro and prn f/u Subjective Subjective Comments No acute events reported No headache No chest pain No dyspnea Active Medications Current Medications Medications (Trade) Dose Ordered Sig/Sarah Route Start Time Stop Time Status Last Admin (NS 1000 ml Inj) 1,000 ml @ 70 mls/hr [id number] IV 05/04/17 20:26 05/06/17 03:28 (NS Flush) 2 ml UNSCH PRN IV FLUSH 05/04/17 20:30 (NS Flush) 2 ml BID IV FLUSH 05/04/17 21:00 05/07/17 08:20 (Tylenol) 650 mg Q4H PRN PO 05/04/17 20:30 (Zofran Inj) 4 mg Q6H PRN IVP 05/04/17 20:30 05/04/17 21:14 (Narcan Inj) 0.4 mg UNSCH PRN IV 05/04/17 20:30 (Senokot) 17.2 mg Q12H PRN PO 05/04/17 20:30 (Folate) 1 mg DAILY PO 05/05/17 09:00 05/10/17 08:59 05/07/17 08:19 (Vitamin B1) 100 mg DAILY PO 05/05/17 09:00 05/07/17 08:19 (Theragran M Tab) 1 tab DAILY PO 05/05/17 09:00 05/10/17 08:59 05/07/17 08:19 (Pepcid) 20 mg BID PO 05/04/17 21:00 05/07/17 08:19 (Catapres) 0.1 mg Q6H PRN PO 05/04/17 20:30 (Ativan) 1 mg Q4H PRN PO 05/04/17 20:30 (Ativan) 2 mg Q2H PRN PO 05/04/17 20:30 (Ativan Inj) 2 mg Q2H PRN IV PUSH 05/04/17 20:30 (Ativan Inj) 2 mg Q1H PRN IV PUSH 05/04/17 20:30 (Ecotrin Ec) 162 mg DAILY PO 05/05/17 09:00 05/07/17 08:20 ([place] 7.5-325 Mg) 1 tab Q6H PRN PO 05/04/17 22:00 05/07/17 08:21 (Lovenox Inj) 40 mg Q24H SQ 05/05/17 00:00 05/07/17 01:16 (Prinivil) 40 mg DAILY PO 05/05/17 09:00 05/07/17 08:19 Allergies Allergies Coded Allergies Penicillin (Verified Allergy, Unknown, 06/19/16) Exam I&O / VS 05/06/17 05/06/17 05/07/17 14:59 22:59 06:59 Intake Total 1320 ml 120 ml Output Total 0 ml Balance 1320 ml 120 ml Intake Oral 1200 ml Oral Supplement 120 ml 120 ml Output Stool Total 0 ml # Voids 9 Vital Signs Date Time Temp Pulse Resp B/P Pulse Ox O2 Delivery O2 Flow Rate FiO2 05/07/17 07:29 99.0 68 16 137/78 98 140/81 125/75 05/07/17 07:16 63 05/07/17 04:38 64 05/07/17 03:39 98.7 67 17 107/59 99 108/66 113/71 05/07/17 02:57 21 05/07/17 02:23 18 05/07/17 00:30 63 05/07/17 00:00 99.2 69 17 110/61 100 123/76 114/69 05/06/17 20:47 99 18 138/68 96 130/65 05/06/17 20:39 98.5 83 18 123/66 100 05/06/17 15:34 98.2 68 15 132/78 98 05/06/17 11:17 98.8 83 15 126/58 98 Edgar Marshall MD May 07, 2017 08:47
--- NOTE | 2017-05-07 09:07 | HHI.PR ---
Subjective Remarks Awake anxious to go home EEG normal trends , vitals normal trends (Kenya Gillis) Objective Objective Results - Vital Signs Date Time Temp Pulse Resp B/P Pulse Ox O2 Delivery O2 Flow Rate FiO2 05/07/17 07:29 99.0 68 16 137/78 98 140/81 125/75 05/07/17 07:16 63 05/07/17 04:38 64 05/07/17 03:39 98.7 67 17 107/59 99 108/66 113/71 05/07/17 02:57 21 05/07/17 02:23 18 05/07/17 00:30 63 05/07/17 00:00 99.2 69 17 110/61 100 123/76 114/69 05/06/17 20:47 99 18 138/68 96 130/65 05/06/17 20:39 98.5 83 18 123/66 100 05/06/17 15:34 98.2 68 15 132/78 98 05/06/17 11:17 98.8 83 15 126/58 98 I/O 05/06/17 05/06/17 05/06/17 05/07/17 05/07/17 05/07/17 07:00 15:00 23:00 07:00 15:00 23:00 Intake Total 1320 ml 120 ml Output Total 0 ml Balance 1320 ml 120 ml Intake Oral 1200 ml Oral Supplement 120 ml 120 ml Output Stool Total 0 ml # Voids 9 (Kenya Gillis) Result Diagram: 05/05/17 0555 05/05/17 0555 ROS General: Other (10 point ROS done, ) Neuro/MS: Other (anxious) (Kenya Gillis) Physical Exam Physical Exam PHYSICAL EXAMINATION GENERAL: This is a well-developed, well-nourished male who appears to be in no acute distress. He is alert and awake, anxious to go home HEAD: Normocephalic without any lesion or mass noted. Facial features appear symmetric. OROPHARYNGEAL: Oropharynx without erythema or edema. NECK: Supple. No nuchal rigidity or lymphadenopathy. Trachea midline without deviation. CARDIAC: Regular rhythm, regular rate, S1 and S2 are heard. LUNGS: Clear to auscultation bilaterally. ABDOMEN: Soft, nontender, no organomegaly or masses. Bowel sounds are heard in all four quadrants. No rebound. No guarding. EXTREMITIES: no edema. Pulses equal bilateral. NEUROLOGICAL: Patient mood and affect appropriate with mild anxiety SKIN:Warm and moist (Kenya Gillis) A/P Assessment and Plan 1. Multiple syncopal episodes. EEG , carotid US negative 2. Alcohol intoxication. Detox protocol, patient alert and awake but mildly restless, alcoholic tremors mild 3. Atypical chest pain. No complaints of chest pain enzymes-negative 4. Hypertension. normal trends on meds 5. Chronic pain. Takes [place] at home 5 times a day patient states, complaints now of legs been restless and lower back hurting 6. Hyponatremia. Labs monitored medical management 7. Mild anemia. Labs monitor medical management Vital signs reviewed, normal trends Labs reviewed, EEG negative Troponins negative negative CT negative carotids, bowel regimen, normal Discussed with patient Discussed with nurse Discussed with Dr. montes, seen on her behalf Discharge planning today and follow-ups with his PCP, neuro on an outpatient basis (Kenya Gillis) Assessment and Plan patient seen and examined agree with above assessment and plan EEG neg ok to d/c home alcohol cessation advised plan of care discussed with patient d/w Kenya BRADLEY (Zeenat Montes MD) Kenya Gillis May 07, 2017 09:07 Zeenat Montes MD May 07, 2017 11:25
[2017-05-07] MEDS ORDERED: ASPI-99 PO (11:13)
[2017-05-07] MEDS ORDERED: GNP100TA3 PO (11:13)
[2017-05-07] MEDS ORDERED: LISI-515 PO (11:13)
[2017-05-07] MEDS ORDERED: FOLI1TAB6 PO (11:13)
== END 2017-05-07 12:26 | disposition home or self-care (01) ==
LOC: NEPE 17:42 → NEDA 20:28 → NEPFCDU 21:36
PROVIDERS: ADMIT Internal Medicine; ATTEND Internal Medicine
DX: R55 Syncope and collapse (principal); R07.89 Other chest pain; I10 Essential (primary) hypertension; F10.129 Alcohol abuse with intoxication, unspecified; G89.29 Other chronic pain; D50.9 Iron deficiency anemia, unspecified; E87.1 Hypo-osmolality and hyponatremia; R74.8 Abnormal levels of other serum enzymes; Z79.899 Other long term (current) drug therapy
CPT/HCPCS: 70450; 71010; 72125; 80053; 80307; 82550; 84484; 85025; 85610; 85730; 93005; 93306; 93880; 95819; 99285; G0378; J1650; J2405; J7030